=== PATIENT | female | born 1985 | race Caucasian/White ===

== ENCOUNTER 2018-10-17 09:52 | Inpatient (IN) ==
[2018-10-17] MEDS ORDERED: Ondansetron 4 MG/2 ML VIAL IVP PRN (09:57)
[2018-10-17] MEDS ORDERED: Metoclopramide 10 MG/2 ML VIAL IVP PRN (09:57)
[2018-10-17] MEDS ORDERED: Famotidine 20 MG/2 ML VIAL IVP PRN (09:57)
[2018-10-17] MEDS ORDERED: *HR* Nalbuphine 10 MG/ML AMPUL IVP PRN (09:57)
[2018-10-17] MEDS ORDERED: miSOPROStol 25 MCG TABLET PO PRN (09:57)
[2018-10-17] MEDS ORDERED: Naloxone 0.4 MG/ML INJ IVP PRN (09:57)
[2018-10-17] MEDS ORDERED: Ringers Solution, Lactated 1,000 ML IVC SCH (10:00)
[2018-10-17] MEDS ORDERED: Oxytocin 20 units/ LR 1000 mL 20 UNIT/1,000 ML BAG IVC SCH (10:00)
--- NOTE | 2018-10-17 11:28 | OB Labor Progress Note ---
Date of Encounter: 10/17/18 Time of Encounter: 11:26 Labor Progress Note - Subjective Subjective: Patient resting comfortably at this time. - Vital Signs Vital Signs: WNL, afebrile - Cervix Cervix: 2/60/-3 - Heart Tones Heart Tones: FHR 145 bpm, moderate variability, +15x15 accels, no decels - [place]: Rare contractions - Interventions Interventions: [place] cervical ripening balloon inserted without difficulty. 60 ml sterile water inserted in uterine balloon, 40 mL sterile water inserted in vaginal balloon. Patient tolerated without difficulty. - Plan Plan: Continue induction as planned Recheck cervix in 4 hours Anticipate
--- NOTE | 2018-10-17 11:43 | Anesthesia Evaluation PreOp ---
Date of Encounter: 10/17/18 Time of Encounter: 11:41 - Past History Planned Operation: BETHANY Cardiac History: Denies any Significant Hx Pulmonary History: Denies Any Significant HX FORKLIFT MECHANIC History: Denies Any Significant HX Other Medical History: Denies Any Significant HX Anesthesia History: No Prior Anesthetic Complications, Past Anesthesia : Yes (, 40weeks) Alcohol Use: none Drug use: none Medications and Allergies No Known Home Drugs 03/20/18 [History] Allergy/AdvReac Type Severity Reaction Status Date / Time No Known Allergies Allergy Verified 03/20/18 21:14 - Meds/Allergy Pre-op Review Medications Reviewed: Yes Allergies Reviewed: Yes Beta Blockers on Current Med List: No Anesthesia Exam O2 Sat Height 1.68 m Weight 133.81 kg Height: 66 Weight: 295 - HEENT Pupil (Motor): Pupils equal Mallampati: II Teeth: Normal Oral Opening: Greater than 3 - FORKLIFT MECHANIC LOC: Oriented [employer]KLIFT MECH[employer]IC Motor: Normal RUE, Normal LUE, Normal RLE, Normal LLE, Normal Face [employer]IFT MECH[employer]IC Sensory: Normal: RUE, LUE, RLE, LLE, Face - Cardiac Rhythm: Regular Murmur: None JVD: No Carotid Bruit: No - Pulmonary Breath Sounds: bilateral Clear Respiratory Effort: Symmetrical Anesthesia Assess/Plan ASA Score: 2 Level of consciousness: Cooperative Monitoring Plan: Standard Monitors
[2018-10-17 11:49] LABS: Basophils # 0.1 K/mcL (0.0-0.2); Basophils % 0.4 %; Eosinophils % 0.2 %; Hematocrit 40.7 % (35.3-44.9); Hemoglobin 13.9 g/dL (11.5-15.4); Immature Granulocytes % 2.4 % (0-4); Lymphocytes # 2.2 K/mcL (0.6-4.6); Lymphocytes % 13.5 %; Mean Corpuscular HGB Conc 34.2 g/dL (31.6-35.5); Mean Corpuscular Hemoglobin 29.9 pg (28.0-33.3); Mean Corpuscular Volume 87.5 fL (83.0-100.0); Monocytes # 0.8 K/mcL (0.0-1.3); Monocytes % 4.8 %; Neutrophils # 12.7 K/mcL (1.6-8.9); Platelet Count 265 K/mcL (140-400); Red Blood Count 4.65 M/mcL (3.82-4.97); Red Cell Distribution Width 13.2 % (11.5-14.5); Segmented Neutrophils % 78.7 %
[2018-10-17 11:59] LABS: Amphetamine Screen,Urine Negative ng/mL (Cutoff=1000); Barbiturate Screen,Urine Negative ng/mL (Cutoff=200); Benzodiazepines Screen,Urine Negative ng/mL (Cutoff=200); Cannabinoid Screen,Urine Negative ng/mL (Cutoff = 50); Cocaine Screen,Urine Negative ng/mL (Cutoff= 300); Opiate Screen,Urine Negative ng/mL (Cutoff=300); Phencyclidine Screen,Urine Negative ng/mL (Cutoff=25)
--- NOTE | 2018-10-17 18:48 | OB Labor Progress Note ---
Date of Encounter: 10/17/18 Time of Encounter: 18:47 Labor Progress Note - Subjective Subjective: UC's getting stronger. - Cervix Cervix: /-2 - Heart Tones Heart Tones: RNST - [place]: UC's q 2 min - Plan Plan: Expect .
--- NOTE | 2018-10-17 18:54 | OB/GYN History & Physical ---
Date of Encounter: 10/17/18 Time of Encounter: 18:51 Assessment and Plan (1) Term Current visit: Yes Status: Acute 32 yo female presents for induction of labor. Will admit to labor and delivery and begin induction. History of Present Illness Chief complaint: Here for induction HPI: Ms. Tijerina is a 32 year old female female at 40 weeks EGA presents to labor and delivery for induction of labor. has been uncomplicated. Past Med Surg Social Fam HX - Past Medical History Source: patient, old records reviewed Medical history: no medical history Psychiatric history: no psych history - Social History Smoking Status: Never smoker Alcohol use: none Drug use: none - Family History Mother Living Status: Still Living Hx Family Cardiac Disorders: No Hx Family Respiratory Disorders: No Hx Family Cancer: No Hx Family GI Disorders: No Hx Family Genitourinary Disorders: No Hx Family Endocrine Disorder: No Hx Family Musculoskeletal Disorders: No Hx Family Neuromuscular Disorders: No Hx Family Neurologic Disorders: No Hx Family HEENT Disorders: No Hx Family Autoimmune Disorders: No Hx Family Reproductive Disorders: No Hx Family Psychosocial Disorders: No Hx Family Medical Disorders: No Obstetrical History - Pregnancies : 4 Para: 2 Medications and Allergies No Known Home Drugs 03/20/18 [History] Allergy/AdvReac Type Severity Reaction Status Date / Time No Known Allergies Allergy Verified 03/20/18 21:14 Exam - Constitutional Constitutional: well developed - HEENT HEENT: EOMI, PERRL - Neck Neck exam: full ROM - Lungs Respiratory exam: CTAB - Cardiovascular Cardiovascular exam: RRR - Abdomen Abdomen: Present: gravid - Extremities Extremities exam: full ROM Deep Tendon Reflex Grade: 2+ Normal - Cervix Dilation: 3 Effacement: 80 Station: -2 Results Result Diagrams: 10/17/18 10:50 Abnormal lab results WBC 16.2 K/mcL (4.3-11.1) H 10/17/18 10:50 Neutrophils # 12.7 K/mcL (1.6-8.9) H 10/17/18 10:50 All other labs normal. - VTE Reasons for not Prescribing Prophylaxis: Treatment not Indicated - Low risk for VTE
[2018-10-17] MEDS ORDERED: *HR* Ropivacaine/PF 0.2% 20 ML VIAL ONE (20:13)
[2018-10-17] MEDS ORDERED: *HR* FentaNYL (PF) 100 MCG/2 ML VIAL ONE (20:13)
[2018-10-17] MEDS ORDERED: Lidocaine -MPF 1% 5 ML AMPUL ONE (20:13)
[2018-10-17] MEDS ORDERED: Epidural Premix (fent/bupiv) 110 ML EP ONE (20:15)
--- NOTE | 2018-10-17 20:42 | Anesthesia Procedures ---
Date of Encounter: 10/17/18 Time of Encounter: 20:41 (procedure start 2009, procedure end 2044) Procedures: Anesthesia - Epidural/Spinal Patient ID/Chart reviewed: Yes Patient examined: Yes OB Eval: Contractions: Non-stressed pattern Supplemental Oxygen: None/Room Air Site Prep: Aseptic Technique Patient position: upright Local Anesthetic: Lidocaine 1% Amount of Local Anesthetic used: 3 Touhy Needle Gauge: 18 Touhy Needle Depth (cm): 7 Catheter Depth at Skin (cm): 13 Test Dose (1.5% Lido + Epi): Volume given (mls): 3 Test Dose Result: Negative Loading Dose: Fentanyl (mcg): 100 Loading Dose: Other: 5ml 0.2% ropivicaine Loading Dose Administered: Thru Touhy Needle Infusion Med: 0.125% Bupivacaine w/ 2 mcg/ml Fentanyl Infusion Rate (mls/hr): [address]: Tegaderm Interspace Used: L3-L4 Loss of Resistance (AGUSTÍN): Yes Blood: No CSF: No Paresthesia: No
[2018-10-17] MEDS ORDERED: Epidural Premix (fent/bupiv) 110 ML EP SCH (20:45)
[2018-10-17] MEDS ORDERED: EPHEDrine 50 MG/ML VIAL ONE ×2 (20:55→21:08)
--- NOTE | 2018-10-17 23:40 | Anesthesia Progress Note ---
Date of Encounter: 10/17/18 Time of Encounter: 23:39 Anesthesia Note - Note Note: 10/17/18 23:39 Called to bedside for pain with contractions 04/21. Bolus via epidural 3ml 0.2% ropivicaine.
--- NOTE | 2018-10-18 02:09 | OB/GYN Procedure Note ---
Delivery - Delivery Date: 10/18/18 Provider: Percy Painting Intrapartum events: none Delivery induction: oxytocin Delivery augmentation: rupture of membranes Delivery monitor: external FHT, internal uterine Anesthesia: epidural Quantitated Blood Loss: 200 - (s) Infant A Delivery Date: 10/18/18 Infant Delivery Time: 01:47 Presentation: vertex Position: CHAVA Route of delivery: Gender: Female Viability: Viable Pounds: 9 Ounces: 10 Weight Gram: 4370 kg at 1 minute: 8 at 5 mins: 9 Shoulder Dystocia: not encountered Specimens collected: cord blood Placenta: spontaneous Cord: 3 umbilical vessels - Repair Episiotomy: none Laceration Description: None - Complications Delivery complications: none - Disposition Mom disposition: stable in LDR disposition: stable in LDR - Comments Comments: Called to room with patient complete and +2 station. Under maternal effort she delivered a viable male weighing 9 lbs. 8 oz. and Apgars 8 and 9 at one and 5 minutes respectively over intact perineum. Following delivery of the head there was no nuchal cord. presented in CHAVA and right shoulder delivered first followed by the left. The body was then delivered with maternal effort and placed on mom's abdomen. Cord was allowed to cease pulsation and was subsequently clamped and cut with assistance from the father. Placenta delivered spontaneously, complete, and intact with three-vessel cord. No lacerations seen. Hemostasis is assured. There were no perineal, vaginal, or cervical lacerations on exam. Mother recovering in LDR in stable condition.
[2018-10-18] MEDS ORDERED: Oxytocin 20 units/ LR 1000 mL 20 UNIT/1,000 ML BAG IVC SCH (04:38)
[2018-10-18] MEDS ORDERED: Benzocaine/Menthol 56 GM AEROSOL SPRAY TP PRN (04:38)
[2018-10-18] MEDS ORDERED: Sennosides 8.6 MG TABLET PO PRN (04:38)
[2018-10-18] MEDS ORDERED: Acetaminophen 325 MG TABLET PO PRN (04:38)
[2018-10-18] MEDS: Ibuprofen 600 MG TABLET PO PRN (08:20)
[2018-10-18] MEDS ORDERED: Prenatal Vit/FA 1 EACH TABLET PO SCH (09:00)
[2018-10-19] MEDS: Ibuprofen 600 MG TABLET PO PRN (02:28)
[2018-10-19 06:16] LABS: Basophils # 0.1 K/mcL (0.0-0.2); Basophils % 0.7 %; Eosinophils # 0.1 K/mcL (0.0-0.6); Eosinophils % 0.7 %; Hematocrit 34.4 % (35.3-44.9); Immature Granulocytes % 2.3 % (0-4); Lymphocytes # 2.9 K/mcL (0.6-4.6); Lymphocytes % 19.2 %; Mean Corpuscular HGB Conc 33.4 g/dL (31.6-35.5); Mean Corpuscular Hemoglobin 29.6 pg (28.0-33.3); Mean Corpuscular Volume 88.4 fL (83.0-100.0); Mean Platelet Volume 10.4 fL (9.4-12.4); Monocytes # 0.8 K/mcL (0.0-1.3); Neutrophils # 11.1 K/mcL (1.6-8.9); Platelet Count 225 K/mcL (140-400); Red Blood Count 3.89 M/mcL (3.82-4.97); Red Cell Distribution Width 13.6 % (11.5-14.5); Segmented Neutrophils % 72.1 %
[2018-10-19 06:17] LABS: Hemoglobin 11.5 g/dL (11.5-15.4)
[2018-10-19 08:13] VITALS: BP 114/75
--- NOTE | 2018-10-19 10:52 | Discharge Summary ---
Date of Encounter: 10/19/18 Time of Encounter: 10:49 - Discharge Diagnosis (1) Status post vaginal delivery Priority: Primary Status: Acute Comments: Patient meeting day one milestones. Pain well-controlled with prescribed medications. Voiding without difficulty, tolerating regular diet. No bowel movement yet, bleeding light to moderate. Anticipate discharge today (2) Breast feeding status of mother Priority: Secondary Status: Acute Comments: support as needed. Patient states she has a breast pump at home. - Discharge Medications Prescriptions: Ibuprofen [Motrin] 600 mg PO Q6H PRN #60 tablet PRN Reason: Cramping Home Medications: Acetaminophen [Tylenol] 650 mg PO Q6H PRN tablet 10/19/18 [Rx] Benzocaine/Menthol [place] [Dermoplast [place]] 1 appl TP QID PRN aerosol 10/19/18 [Rx] Docusate [Colace] 100 mg PO BID capsule 10/19/18 [Rx] Ibuprofen [Motrin] 600 mg PO Q6H PRN #60 tablet 10/19/18 [Rx] Allergies/Adverse Reactions: Allergy/AdvReac Type Severity Reaction Status Date / Time No Known Allergies Allergy Verified 03/20/18 21:14 Data Procedures and tests throughout hospitalization: Laboratory Tests 10/17/18 10/17/18 10/19/18 10:50 10:50 06:03 WBC 16.2 H 15.3 H RBC 4.65 3.89 Hgb 13.9 11.5 D Hct 40.7 34.4 L MCV 87.5 88.4 MCH 29.9 29.6 MCHC 34.2 33.4 RDW 13.2 13.6 Plt Count 265 225 MPV 11.0 10.4 Immature Gran % 2.4 2.3 Seg Neutrophils % 78.7 72.1 Lymphocytes % 13.5 19.2 Monocytes % 4.8 5.0 Eosinophils % 0.2 0.7 Basophils % 0.4 0.7 Neutrophils # 12.7 H 11.1 H Lymphocytes # 2.2 2.9 Monocytes # 0.8 0.8 Eosinophils # 0.0 0.1 Basophils # 0.1 0.1 Urine Opiates Screen Negative Ur Barbiturates Screen Negative Ur Phencyclidine Scrn Negative Ur Amphetamines Screen Negative U Benzodiazepines Scrn Negative Urine Cocaine Screen Negative U Marijuana (THC) Screen Negative Ur Drug Screen Interp See Below Labs on day of discharge: Labs from last 24 hours 10/19/18 06:03 WBC 15.3 H RBC 3.89 Hgb 11.5 D Hct 34.4 L MCV 88.4 MCH 29.6 MCHC 33.4 RDW 13.6 Plt Count 225 MPV 10.4 Immature Gran % 2.3 Seg Neutrophils % 72.1 Lymphocytes % 19.2 Monocytes % 5.0 Eosinophils % 0.7 Basophils % 0.7 Neutrophils # 11.1 H Lymphocytes # 2.9 Monocytes # 0.8 Eosinophils # 0.1 Basophils # 0.1 Date of admission: 10/17/18 09:52 Primary care physician: PCP NONE Discharging clinician: Pamella Henderson Anticipated date of discharge: 10/19/18 - Patient Status Disposition: Home, Self-Care Condition: Good Functional capacity at discharge: independent ambulation Overall status at discharge: patient is progressing back to baseline - Discharge Instructions Follow Up With: NONE,PCP [Primary Care Provider] - - Diet and Activity Activity: resume usual activities as tolerated Diet: regular diet Hospital Course Reason for admission: induction of labor Delivery: Episiotomy: none Laceration: none Other procedures: none complications: none Discharge diagnosis: IUP at term delivered [place] baby: female Hospital course: Delivery Date: 10/18/18 Provider: Percy Painting Intrapartum events: none Delivery induction: oxytocin Delivery augmentation: rupture of membranes Delivery monitor: external FHT, internal uterine Anesthesia: epidural Quantitated Blood Loss: 200 - (s) Infant A Infant Delivery Date: 10/18/18 Infant Delivery Time: 01:47 Presentation: vertex Position: CHAVA Route of delivery: Gender: Female Viability: Viable Pounds: 9 Ounces: 10 Weight Gram: 4370 kg at 1 minute: 8 at 5 mins: 9 Shoulder Dystocia: not encountered Specimens collected: cord blood Placenta: spontaneous Cord: 3 umbilical vessels - Repair Episiotomy: none Laceration Description: None - Complications Delivery complications: none - Disposition Mom disposition: stable in LDR disposition: stable in LDR - Comments Comments: Called to room with patient complete and +2 station. Under maternal effort she delivered a viable male weighing 9 lbs. 8 oz. and Apgars 8 and 9 at one and 5 minutes respectively over intact perineum. Following delivery of the head there was no nuchal cord. presented in CHAVA and right shoulder delivered first followed by the left. The body was then delivered with maternal effort and placed on mom's abdomen. Cord was allowed to cease pulsation and was subsequently clamped and cut with assistance from the father. Placenta delivered spontaneously, complete, and intact with three-vessel cord. No lacerations seen. Hemostasis is assured. There were no perineal, vaginal, or cervical lacerations on exam. Mother recovering in LDR in stable condition. Time Attestation: Total time spent providing and/or coordinating discharge services: Time Spent: Less than 30 minutes Exam - Constitutional Vitals: Temp Pulse Resp BP Pulse Ox 98 F 88 14 114/75 96 10/19/18 08:12 10/19/18 08:12 10/19/18 08:12 10/19/18 08:12 10/19/18 08:12 General appearance IM: A&O X 3, pleasant, no acute distress, obese - Respiratory Respiratory exam: Present: CTAB - Cardiovascular Cardiovascular exam IM: Present: RRR, +S1, +S2 - GI/Abdominal GI/Abdominal exam IM: normal bowel sounds, soft - Rectal Rectal exam: deferred - External exam: normal external exam Uterine Tone: Firm Uterus Position: At Umbilicus, Midline - Extremities Exam Extremities exam IM: Present: full ROM, normal capillary refill, normal inspection - Neurological Exam Neurological exam: alert, normal gait, oriented X3
== END 2018-10-19 11:34 | disposition home or self-care (01) | DRG 560 ==
LOC: 1NENULAB 09:52 → 1NENUOBS 10-18 03:36
PROVIDERS: ADMIT Obstetrics & Gynecology; ATTEND Obstetrics & Gynecology